=== PATIENT | female | born 1985 | race Caucasian/White ===

== ENCOUNTER 2018-08-07 10:51 | Day surgery (SDC) | payer OTHER ==
[~2018-08-07] VITALS: Ht 177.8 cm; Wt 151.5 kg
[~2018-08-07 10:51] MED LIST: LR 1,000 ML IV ONE
[2018-08-07 11:25] LABS: URINE PREG TEST NEGATIVE (NEGATIVE)
[2018-08-07] MEDS ORDERED: MIDAZOLAM INJ 2 MG/2 ML VIAL (J2250) As Ordered ONE (13:09)
[2018-08-07] MEDS ORDERED: ONDANSETRON 4MG/2ML VIAL (J2405) As Ordered ONE (13:09)
[2018-08-07] MEDS ORDERED: fentaNYL 100 MCG/2 ML INJECTION (J3010) As Ordered ONE (13:09)
[2018-08-07] MEDS ORDERED: LIDOCAINE 2% INJ 100 MG/5 ML SDV (FOR ANES.) As Ordered ONE (13:09)
[2018-08-07] MEDS ORDERED: PROPOFOL 200 MG/20 ML VIAL As Ordered ONE (13:13)
[2018-08-07] MEDS ORDERED: CHLOROPROCAINE 2 % INJ PRES.FREE 20 ML VIAL (J2400) As Ordered ONE (13:54)
[2018-08-07] MEDS ORDERED: NORCO, ANEXSIA 5/325MG TABLET (HYDROcodone/ACETAMINOPHEN) PO PRN ×2 (14:30)
[2018-08-07] MEDS ORDERED: fentaNYL 100 MCG/2 ML INJECTION (J3010) IV PRN (14:30)
[2018-08-07] MEDS ORDERED: LR 1,000 ML IV SCH (14:30)
[2018-08-07] MEDS ORDERED: ONDANSETRON 4MG/2ML VIAL (J2405) IV PRN (14:30)
[2018-08-07 16:10] VITALS: BP 126/80
--- NOTE | 2018-08-07 17:04 | RO ---
DATE OF PROCEDURE: 08/07/2018 PREOPERATIVE DIAGNOSIS: Pilonidal cyst. POSTOPERATIVE DIAGNOSIS; Pilonidal cyst. PROCEDURE: Pilonidal cystectomy. SURGEON: Dr. Estrada FOAM GUN OPERATOR: None. ANESTHESIA: Spinal COMPLICATIONS: None. INDICATIONS FOR PROCEDURE: The patient is a 33-year-old female who presents with pilonidal cyst that is been recurrent. Recommendation was to proceed with pilonidal cystectomy. Risks and benefits of the procedure were not limited to but including bleeding infection, damage to surrounding structures, need for further surgery discussed in detail with the patient and informed was obtained procedure was planned. PROCEDURE: The patient was brought back to operating room 2 after sufficient spinal sedation. She was placed in the prone position. Next the presacral area was sterilely prepped and draped with Betadine. Following that a time out was done confirm proper patient procedure. Following that an elliptical incision was made with a 15-blade scalpel and incision was then carried circumferentially down to level the presacral fascia surrounding the cyst and sinus tracts using electrocautery. Once the area was removed measuring 3.5 x 6 cm, electrocautery was used to control hemostasis in the wound bed. Once that was completed of the area was cleaned and dried and packed with 4x4s covered with tape thus ending procedure.
== END 2018-08-07 16:32 | disposition home or self-care (01) ==
LOC: M SDC 10:51 → MERGE 13:30 → M SDC 16:32
PROVIDERS: ATTEND Surgery
DX: L05.91 Pilonidal cyst without abscess (principal); E28.2 Polycystic ovarian syndrome; F17.210 Nicotine dependence, cigarettes, uncomplicated; Z88.2 Allergy status to sulfonamides
CPT/HCPCS: 11770; 84703; 88304; J2250; J2400; J2405; J3010

== ENCOUNTER → 2019-02-09 | Outpatient (REF) | payer OTHER ==
[2019-02-09 17:58] LABS: APPEARANCE, URINE CLOUDY (CLEAR); BACTERIA, URINE AUTO 2+ (NEGATIVE); BILIRUBIN, URINE AUTO NEGATIVE (NEGATIVE); BLOOD, URINE BLOOD 3+ (NEGATIVE); COLOR, URINE YELLOW (YELLOW); GLUCOSE, URINE (UA) AUTO NEGATIVE (NEGATIVE); KETONE, URINE AUTO NEGATIVE (NEGATIVE); LEUKOCYTE ESTERASE, URINE AUTO 2+ (NEGATIVE); MUCUS, URINE SMALL (NEGATIVE); NITRITE, URINE AUTO POSITIVE (NEGATIVE); PROTEIN, URINE AUTO 2+ mg/dL (NEGATIVE); RBC, URINE AUTO 161 /HPF (0-3); SPECIFIC GRAVITY URINE AUTO 1.012 (1.002-1.035); SQUAMOUS EPITHELIAL CELL UR AU 2 /HPF (0-6); UROBILINOGEN, URINE AUTO 0.2 mg/dL (0.0-2.0); WBC, URINE AUTO TNTC /HPF (0-3)
== END ==
LOC: M LAB REF 16:26
PROVIDERS: ATTEND Physician Assistant Medical
DX: N39.0 Urinary tract infection, site not specified (principal)

== ENCOUNTER 2019-04-05 06:56 | Emergency (ER) | payer MEDICAID, OTHER, SELFPAY ==
[~2019-04-05] VITALS: Ht 172.7 cm; Wt 153.5 kg
[2019-04-05] MEDS ORDERED: NS 1,000 ML IV SCH (07:03)
[2019-04-05] MEDS ORDERED: GI COCKTAIL 50ML BTL(HYOSCYAMINE/MAALOX/LIDOCAINE VISCOUS)(1:3:1) PO ONE (07:15)
[2019-04-05] MEDS ORDERED: PANTOPRAZOLE 40MG INJ (PROTONIX) (C9113) IV ONE (07:15)
[2019-04-05 07:25] LABS: BASO # 0.1 10^3/uL (0.0-0.2); BASO % 0.6 % (0.0-1.0); EOS # 0.3 10^3/uL (0.0-0.5); EOS % 2.8 % (0.0-3.0); HEMATOCRIT 42.1 % (36.0-47.0); HEMOGLOBIN 14.3 g/dl (12.0-15.5); LYMPH # 3.3 10^3/uL (1.5-5.0); LYMPH % 30.8 % (24.0-44.0); MEAN CORPUSCULAR HEMOGLOBIN 30.4 pg (27.0-33.0); MEAN CORPUSCULAR VOLUME 89.6 fl (80.0-96.0); MONO # 0.9 10^3/uL (0.0-0.8); NEUTROPHILS # 6.2 10^3/uL (1.5-8.5); NEUTROPHILS % 57.6 % (36.0-66.0); PLATELET COUNT, AUTOMATED 341 10^3/uL (150-450); WHITE BLOOD COUNT 10.7 10^3/uL (4.0-10.0)
[2019-04-05 07:58] LABS: ALBUMIN 3.5 GM/DL (3.2-5.2); ALT/SGPT 18 U/L (12-78); BILIRUBIN,DIRECT 0.2 MG/DL (0.0-0.2); BILIRUBIN,TOTAL 0.5 MG/DL (0.2-1.0); BLOOD UREA NITROGEN 14 MG/DL (7-18); CARBON DIOXIDE LEVEL 26 MEQ/L (21-32); CHLORIDE LEVEL 107 MEQ/L (98-107); CREATININE FOR GFR 1.05 MG/DL (0.55-1.30); GLOMERULAR FILTRATION RATE > 60.0 (>60); GLUCOSE, FASTING 100 MG/DL (70-100); LIPASE 139 U/L (73-393); SODIUM LEVEL 140 MEQ/L (136-145)
[2019-04-05] MEDS ORDERED: METOCLOPRAMIDE INJ 10MG/2ML VIAL (J2765) IV ONE (08:15)
[2019-04-05] MEDS ORDERED: SUCRALFATE SUSP 1GM/10ML UD PO ONE (08:15)
--- NOTE | 2019-04-05 08:31 | ECGEPIP ---
[facility] - ED Test Date: 2019-04-05 Pat Name: EMIL PLUMMER Department: Room: - Gender: Female Supervisor Home Economics: [facility] : 1985 Requested By: Alicja Pastor Order Number: [id number] Reading MD: Alicja Pastor Measurements Intervals [place] Rate: 71 P: 14 ID: [id number] QRS: -11 QRSD: 92 T: 15 QT: 382 QTc: 416 Interpretive Statements SINUS RHYTHM NO PRIOR Electronically Signed on 04-05-2019 8:31:18 EDT by Alicja Pastor
[2019-04-05] MEDS ORDERED: MORPHINE 4 MG/ML 1ML VIAL/SYRINGE (J2270) IV PRN (09:45)
--- NOTE | 2019-04-05 09:45 | REP ---
Right upper quadrant sonography: History: Abdomen and epigastric pain. Comparison CT study is from July 12, 2007. Sonographic findings: Scanning through the right upper quadrant of the abdomen is somewhat inhibited by patient body habitus and bowel gas. A normal sized thick-walled gallbladder is seen containing a large shadowing calculi. The calculi measure up to 2.3 cm in diameter. Gallbladder wall measures up to 1.0 cm in thickness. No pericholecystic fluid is seen. No focal liver lesion is appreciated. Limited views of the pancreas show no abnormality. Common bile duct is normal measuring 0.4 cm in greatest diameter. There is no evidence of ascites or right renal abnormality. The right kidney measures 11.1 x 6.3 x 4.5 centimeters. Impression: Cholelithiasis with at least two large calculi. There is moderate to marked gallbladder wall thickening. Otherwise negative. Electronically Signed by Juanito Reardon MD 04/05/2019 11:47 A
[2019-04-05 10:28] VITALS: BP 143/87
[2019-04-05] MEDS ORDERED: PERCOCET 5MG/325MG TAB PO ONE (10:30)
[2019-04-05] MEDS ORDERED: PERC5TAB12 PO (10:52)
[2019-04-05] MEDS ORDERED: REGL10TA6 PO (10:53)
== END 2019-04-05 11:29 | disposition home or self-care (01) ==
LOC: EDBD 06:56 → M ED 06:56
DX: K80.20 Calculus of gallbladder without cholecystitis without obstruction (principal); E28.2 Polycystic ovarian syndrome; Z88.1 Allergy status to other antibiotic agents; Z88.2 Allergy status to sulfonamides; F17.210 Nicotine dependence, cigarettes, uncomplicated
CPT/HCPCS: 76705; 80048; 80076; 83690; 84702; 85025; 93005; 96361; 96374; 96375; 99284; C9113; J2270; J2765

== ENCOUNTER → 2019-05-01 | Outpatient (REF) | payer MEDICAID ==
[~2019-05-01] MED LIST changes: -LR 1,000 ML IV ONE; +PERC5TAB12 PO; +REGL10TA6 PO
[2019-05-01 16:59] LABS: AMORPHOUS SEDIMENT SMALL (NEGATIVE); APPEARANCE, URINE CLOUDY (CLEAR); BACTERIA, URINE AUTO 2+ (NEGATIVE); BILIRUBIN, URINE AUTO NEGATIVE (NEGATIVE); BLOOD, URINE BLOOD 2+ (NEGATIVE); COLOR, URINE YELLOW (YELLOW); GLUCOSE, URINE (UA) AUTO NEGATIVE (NEGATIVE); KETONE, URINE AUTO NEGATIVE (NEGATIVE); LEUKOCYTE ESTERASE, URINE AUTO 2+ (NEGATIVE); MUCUS, URINE SMALL (NEGATIVE); NITRITE, URINE AUTO NEGATIVE (NEGATIVE); PROTEIN, URINE AUTO NEGATIVE (NEGATIVE); RBC, URINE AUTO 50 /HPF (0-3); SPECIFIC GRAVITY URINE AUTO 1.016 (1.002-1.035); SQUAMOUS EPITHELIAL CELL UR AU 9 /HPF (0-6); TRANSITIONAL EPITHELIAL AUTO 3 /HPF; UROBILINOGEN, URINE AUTO 0.2 mg/dL (0.0-2.0); WBC, URINE AUTO 109 /HPF (0-3)
== END ==
LOC: M LAB REF 09:04
PROVIDERS: ATTEND Physician Assistant Medical
DX: N39.0 Urinary tract infection, site not specified (principal)

== ENCOUNTER 2019-05-24 09:13 | Emergency (ER) | payer MEDICAID ==
[~2019-05-24] VITALS: Ht 175.3 cm; Wt 111.4 kg
[2019-05-24 10:41] LABS: INFLUENZA A AMPLIFICATION NEGATIVE (NEGATIVE); INFLUENZA B AMPLIFICATION NEGATIVE (NEGATIVE)
[2019-05-24 11:04] VITALS: BP 135/80
== END 2019-05-24 11:17 | disposition home or self-care (01) ==
LOC: M ED 09:13
DX: S29.011A Strain of muscle and tendon of front wall of thorax, initial encounter (principal); X58.XXXA Exposure to other specified factors, initial encounter; Y92.89 Other specified places as the place of occurrence of the external cause; B07.0 Plantar wart; B34.9 Viral infection, unspecified; E28.2 Polycystic ovarian syndrome; G43.909 Migraine, unspecified, not intractable, without status migrainosus; Z88.1 Allergy status to other antibiotic agents; Z88.2 Allergy status to sulfonamides; F17.210 Nicotine dependence, cigarettes, uncomplicated

== ENCOUNTER → 2019-05-26 | Outpatient (REF) | payer MEDICAID ==
[2019-05-26 13:05] LABS: APPEARANCE, URINE CLOUDY (CLEAR); BACTERIA, URINE AUTO 1+ (NEGATIVE); BILIRUBIN, URINE AUTO NEGATIVE (NEGATIVE); BLOOD, URINE BLOOD 2+ (NEGATIVE); COLOR, URINE YELLOW (YELLOW); GLUCOSE, URINE (UA) AUTO NEGATIVE (NEGATIVE); KETONE, URINE AUTO NEGATIVE (NEGATIVE); LEUKOCYTE ESTERASE, URINE AUTO 3+ (NEGATIVE); MUCUS, URINE SMALL (NEGATIVE); NITRITE, URINE AUTO NEGATIVE (NEGATIVE); PROTEIN, URINE AUTO NEGATIVE (NEGATIVE); RBC, URINE AUTO 64 /HPF (0-3); SQUAMOUS EPITHELIAL CELL UR AU 6 /HPF (0-6); UROBILINOGEN, URINE AUTO 0.2 mg/dL (0.0-2.0); WBC, URINE AUTO 143 /HPF (0-3)
== END ==
LOC: M LAB REF 11:47
PROVIDERS: ATTEND Physician Assistant
DX: N39.0 Urinary tract infection, site not specified (principal)

== ENCOUNTER 2019-07-16 12:39 | Day surgery (SDC) | payer OTHER ==
[~2019-07-16] VITALS: Ht 175.3 cm; Wt 113.4 kg
[~2019-07-16 12:39] MED LIST changes: +ACETAMINOPHEN 1000MG 100ML IV BTL (OFIRMEV) (J0131 PER 10MG) As Ordered ONE; +KETOROLAC 60 MG/2 ML VIAL (J1885) As Ordered ONE; +LIDOCAINE 2% INJ 100 MG/5 ML SDV (FOR ANES.) As Ordered ONE; +MIDAZOLAM INJ 2 MG/2 ML VIAL (J2250) As Ordered ONE; +NEXP1IMP SC; +ONDANSETRON 4MG/2ML VIAL (J2405) As Ordered ONE; +ROCURONIUM BROMIDE 50 MG/5 ML VIAL As Ordered ONE; +SUGAMMADEX SODIUM 500 MG/5 ML VIAL (BRIDION) As Ordered ONE; +dexameTHASONE 4 MG/ML 1ML VIAL (J1100) As Ordered ONE; +fentaNYL 100 MCG/2 ML INJECTION (J3010) As Ordered ONE; +propofoL 200 MG/20 ML VIAL As Ordered ONE
[2019-07-16] MEDS ORDERED: BUPIVACAINE/EPIN 0.25% 30 ML VIAL As Ordered ONE (16:04)
[2019-07-16] MEDS ORDERED: fentaNYL 100 MCG/2 ML INJECTION (J3010) As Ordered ONE ×2 (16:45→18:04)
[2019-07-16] MEDS ORDERED: HYDROmorphone HCL 2 MG/ML 1ML VIAL (J1170) As Ordered ONE (16:57)
[2019-07-16] MEDS ORDERED: ROCURONIUM BROMIDE 50 MG/5 ML VIAL As Ordered ONE (17:22)
[2019-07-16] MEDS ORDERED: NORCO, ANEXSIA 5/325MG TABLET (HYDROcodone/ACETAMINOPHEN) PO PRN (18:00)
[2019-07-16] MEDS ORDERED: ONDANSETRON 4MG/2ML VIAL (J2405) As Ordered ONE (18:04)
[2019-07-16] MEDS ORDERED: oxyCODONE 5MG TAB As Ordered ONE (18:04)
[2019-07-16] MEDS: fentaNYL 100 MCG/2 ML INJECTION (J3010) IV PRN ×4 (18:05→18:20)
[2019-07-16] MEDS: oxyCODONE 5MG TAB PO PRN ×2 (18:05→18:40)
[2019-07-16] MEDS ORDERED: ONDANSETRON 4MG/2ML VIAL (J2405) IV PRN (18:15)
[2019-07-16] MEDS ORDERED: LR 1,000 ML IV SCH (18:15)
[2019-07-16] MEDS ORDERED: METOCLOPRAMIDE INJ 10MG/2ML VIAL (J2765) IV PRN (18:15)
[2019-07-16] MEDS ORDERED: HYDROMORPHONE HCL 0.5 MG/ 0.5 ML SYRINGE (J1170 PER 1) IV PRN (18:15)
[2019-07-16 20:30] VITALS: BP 125/79
--- NOTE | 2019-07-17 14:24 | RO ---
DATE OF PROCEDURE: 07/16/2019 PREOPERATIVE DIAGNOSIS: Symptomatic cholelithiasis. POSTOPERATIVE DIAGNOSIS: Symptomatic cholelithiasis. PROCEDURE: Robotic cholecystectomy. SURGEON: Dr. Phu Estrada PARTNER MARKETING MANAGER: None. ANESTHESIA: General. ESTIMATED BLOOD LOSS: 10. COMPLICATIONS: None. INDICATION FOR PROCEDURE: The patient is a 34-year-old female who presents with severe right upper quadrant pain and found have symptomatic cholelithiasis. Recommendation was to proceed with robotic cholecystectomy. Risks and benefits of the procedure not limited to. but including bleeding, infection, hernia formation, damage to surrounding structures, need for further surgery were discussed in detail with the patient. Informed consent was obtained and the procedure was planned. DESCRIPTION OF PROCEDURE: The patient was brought back to operating room seven after sufficient sedation and the abdomen was sterilely prepped and draped. Next. A time out was done to confirm proper patient and proper procedure. Following that, an 8 mm port was placed in the left upper quadrant and Veress needle was inserted and the abdomen was insufflated to 15 mm of mercury. Next, the Veress needle was removed and an 8 mm robotic OptiVu port was used to gain access to the abdomen. Once the abdomen was entered, there were multiple omental adhesions on the anterior abdominal wall, the liver and the gallbladder. Another 8 mm port was placed in the upper mid abdomen using cautery with Metzenbaum scissors. I was able to take down all of the adhesions until the liver and the gallbladder could be visualized. Next, two more ports were placed in the right upper quadrant. The fundus of the gallbladder was elevated up towards the right shoulder. The cystic duct and cystic artery were carefully dissected free, doubly clipped and cut. The gallbladder was then dissected free from gallbladder fossa using electrocautery and brought out through a 5 mm EndoCatch bag in the right upper quadrant port site without any perforation of the gallbladder. Once the gallbladder was removed, the fascia at the right lateral port site was closed with an #0 Vicryl suture and a Edwin-Darshan needle. Once that was completed, the abdomen desufflated. The skin incisions were closed #4-0 Vicryl subcuticular sutures. The abdomen was cleaned and dried. Steri-Strips, 4x4 and tape were applied, thus ending the procedure.
== END 2019-07-16 20:37 | disposition home or self-care (01) ==
LOC: M SDC 12:39
PROVIDERS: ATTEND Surgery
DX: K80.10 Calculus of gallbladder with chronic cholecystitis without obstruction (principal); G43.909 Migraine, unspecified, not intractable, without status migrainosus; F41.9 Anxiety disorder, unspecified; F32.9 Major depressive disorder, single episode, unspecified; Z88.2 Allergy status to sulfonamides; Z91.048 Other nonmedicinal substance allergy status
CPT/HCPCS: 47562; 81025; 88304; J0131; J1100; J1170; J1885; J2250; J2405; J3010

== ENCOUNTER → 2019-09-24 | Outpatient (REF) | payer OTHER ==
[~2019-09-24] MED LIST changes: -ACETAMINOPHEN 1000MG 100ML IV BTL (OFIRMEV) (J0131 PER 10MG) As Ordered ONE; -KETOROLAC 60 MG/2 ML VIAL (J1885) As Ordered ONE; -LIDOCAINE 2% INJ 100 MG/5 ML SDV (FOR ANES.) As Ordered ONE; -MIDAZOLAM INJ 2 MG/2 ML VIAL (J2250) As Ordered ONE; -ONDANSETRON 4MG/2ML VIAL (J2405) As Ordered ONE; -ROCURONIUM BROMIDE 50 MG/5 ML VIAL As Ordered ONE; -SUGAMMADEX SODIUM 500 MG/5 ML VIAL (BRIDION) As Ordered ONE; -dexameTHASONE 4 MG/ML 1ML VIAL (J1100) As Ordered ONE; -fentaNYL 100 MCG/2 ML INJECTION (J3010) As Ordered ONE; -propofoL 200 MG/20 ML VIAL As Ordered ONE
== END ==
LOC: M LAB REF 14:29
PROVIDERS: ATTEND Physician Assistant
DX: R30.0 Dysuria (principal)

== ENCOUNTER → 2021-02-17 | Outpatient (REF) | payer OTHER ==
[2021-02-17 18:13] LABS: AMORPHOUS SEDIMENT SMALL (NEGATIVE); APPEARANCE, URINE TURBID (CLEAR); BACTERIA, URINE AUTO NEGATIVE (NEGATIVE); BILIRUBIN, URINE AUTO NEGATIVE (NEGATIVE); BLOOD, URINE BLOOD 1+ (NEGATIVE); COLOR, URINE YELLOW (YELLOW); GLUCOSE, URINE (UA) AUTO NEGATIVE (NEGATIVE); KETONE, URINE AUTO NEGATIVE (NEGATIVE); LEUKOCYTE ESTERASE, URINE AUTO NEGATIVE (NEGATIVE); NITRITE, URINE AUTO NEGATIVE (NEGATIVE); PROTEIN, URINE AUTO NEGATIVE (NEGATIVE); RBC, URINE AUTO 4 /HPF (0-3); SPECIFIC GRAVITY URINE AUTO 1.012 (1.002-1.035); SQUAMOUS EPITHELIAL CELL UR AU 4 /HPF (0-6); UROBILINOGEN, URINE AUTO 0.2 mg/dL (0.0-2.0); WBC, URINE AUTO 1 /HPF (0-3)
== END ==
LOC: M LAB REF 17:47
PROVIDERS: ATTEND Physician Assistant
DX: N39.0 Urinary tract infection, site not specified (principal)

== ENCOUNTER 2024-06-24 09:05 | Emergency (ER) | payer MEDICAID, OTHER, SELFPAY ==
[~2024-06-24] VITALS: Ht 175.3 cm; Wt 193.0 kg
[~2024-06-24 09:05] MED LIST changes: +ETON68IM SC; -NEXP1IMP SC
[2024-06-24 10:14] LABS: HEMATOCRIT 42.3 % (36.0-47.0); HEMOGLOBIN 13.6 g/dl (12.0-15.5); MEAN CORPUSCULAR HEMOGLOBIN 28.3 pg (27.0-33.0); MEAN CORPUSCULAR HGB CONC 32.2 g/dl (32.0-36.5); MEAN CORPUSCULAR VOLUME 87.9 fl (80.0-96.0); PLATELET COUNT, AUTOMATED 383 10^3/uL (150-450); RED BLOOD COUNT 4.81 10^6/uL (4.00-5.40); WHITE BLOOD COUNT 10.6 10^3/uL (4.0-10.0)
[2024-06-24 10:21] LABS: BLOOD UREA NITROGEN 20 MG/DL (9-23); CALCIUM LEVEL 9.3 MG/DL (8.5-10.1); CARBON DIOXIDE LEVEL 29 MMOL/L (20-31); CHLORIDE LEVEL 104 MMOL/L (98-107); GLOMERULAR FILTRATION RATE > 60.0 (>60); GLUCOSE, FASTING 124 MG/DL (60-100); POTASSIUM SERUM 4.1 MMOL/L (3.5-5.1); SODIUM LEVEL 142 MMOL/L (136-145)
[2024-06-24] MEDS ORDERED: ISOVUE-370 76% 100ML VIAL As Ordered ONE (10:31)
[2024-06-24] MEDS ORDERED: GABA-1172 PO (10:32)
[2024-06-24] MEDS ORDERED: NAPR-885 PO (10:32)
[2024-06-24] MEDS ORDERED: HOME MED LIST COMPLETE! XX SCH (10:35)
[2024-06-24] MEDS: METOCLOPRAMIDE INJ 10MG/2ML VIAL IV ONE (11:33)
[2024-06-24] MEDS: KETOROLAC 30 MG/ML 1ML VIAL IV ONE (11:33)
[2024-06-24 12:46] VITALS: BP 113/72; TEMP 97.2; O2SAT 95
== END 2024-06-24 12:51 | disposition home or self-care (01) ==
LOC: M ED 09:05
DX: G43.809 Other migraine, not intractable, without status migrainosus (principal); Z88.2 Allergy status to sulfonamides; Z88.8 Allergy status to other drugs, medicaments and biological substances; Z79.899 Other long term (current) drug therapy
CPT/HCPCS: 70450; 70496; 70498; 80047; 80048; 85027; 93005; 96374; 99284; J1885; J2765; Q9967